=== PATIENT | male | born 1965 | race Caucasian/White ===

== ENCOUNTER 2019-08-23 14:33 | Emergency (ER) | payer BC ==
[2019-08-23] MEDS ORDERED: CLINDAMYCIN 600MG/50ML PREMIX 600 MG/50 ML BAG IVPB ONE (14:51)
--- NOTE | 2019-08-23 14:59 | Emergency Department Record ---
History of Present Illness - General Chief complaint: Abscess Stated complaint: RT GROIN PAIN/LUMP Time Seen by Provider: 08/23/19 14:41 Source: Patient Mode of Arrival: Ambulatory Limitations: No limitations - History of Present Illness Initial comments: The patient is here due to a R groin pain and swelling for 4-5 days. He denies any AP, fever, chills, or dysuria. The patient has no hx of similar issues. MD complaint: Abscess/boil, Lesion, Rash Onset/Timin -: Days(s) Severity: Moderate Severity scale (1-10): 10 Quality: Aching Consistency: Constant - Related Data Home Medications Medication Instructions Recorded Confirmed Last Taken No Home Med [NO HOME MEDS] 08/23/19 08/23/19 Unknown Allergies Allergy/AdvReac Type Severity Reaction Status Date / Time Penicillins Allergy HIVES Verified 08/23/19 14:41 Travel/Exposure Screening - Travel/Exposure Within Last 30 Days Have you traveled within the last 30 days?: No - Travel/Exposure Within Last Year Have you traveled outside the [place] in the last year?: No - Additonal Travel/Exposure Details Have you been exposed to anyone with a communicable illness?: No - Travel Symptoms Symptom Screening: None Review of Systems Constitutional: Denies: Chills, Fever Eyes: Denies: Eye discharge ENT: Denies: Congestion Respiratory: Denies: Cough, Dyspnea Past Medical History - SOCIAL HISTORY Smoking Status: Current every day smoker Alcohol Use: Occasional Drug Use: None - RESPIRATORY Hx Respiratory Disorders: No - CARDIOVASCULAR Hx Cardio Disorders: No - NEURO Hx Neuro Disorders: No - GI Hx GI Disorders: No - Hx Genitourinary Disorders: No - ENDOCRINE Hx Endocrine Disorders: No - MUSCULOSKELETAL Hx Musculoskeletal Disorders: Yes Hx Arthritis: Yes Hx Back Injury: Yes - PSYCH Hx Psych Problems: No - HEMATOLOGY/ONCOLOGY Hx Hematology/Oncology Disorders: No Family Medical History Any Significant Family History?: Yes Physical Exam - General General Appearance: Alert, Oriented x3, Cooperative - Head Head exam: Atraumatic - Eye Eye exam: Normal appearance - ENT Throat exam: Normal inspection. negative: Tonsillar erythema, Tonsillar exudate - Neck Neck exam: Normal inspection, Full ROM. negative: Tenderness - Respiratory Respiratory exam: Normal lung sounds bilaterally. negative: Respiratory distress - Cardiovascular Cardiovascular Exam: Regular rate, Normal rhythm, Normal heart sounds - GI/Abdominal GI/Abdominal exam: Soft, Normal bowel sounds. negative: Distended, Rebound, Rigid, Tenderness - exam: Circumcision. negative: Normal inspection (There is swelling, tenderness and erythema to the R groin/ inguinal area. There is no R scrotal tenderness or testicular tenderness.), Scrotal swelling, Testicular tenderness - Extremities Extremities exam: Normal inspection Image of Full Body: 1 - Area of pain and infection. - Back Back exam: Reports: Normal inspection - Neurological Neurological exam: Alert, Normal gait. negative: Abnormal gait, Motor sensory deficit Course Vital Signs 08/23/19 14:35 Temperature 98.0 F Pulse Rate 93 H Respiratory 20 Rate Blood Pressure 170/98 Pulse Ox 96 - Reevaluation(s) Reevaluation #1: The patient is doing well and walking around with minimal difficulty. Due to the CT report I did discuss the case with Dr. Caldera and he would like to directly admit the patient to [facility] for further IV Abx's and probable surgery. 08/23/19 16:46 Medical Decision Making - Data Complexity MDM Data: Labs Ordered and/or Reviewed, X-Ray Ordered and/or Reviewed - Lab Data Result diagrams: 08/23/19 14:55 08/23/19 14:55 - Radiology Data Radiology results: Report reviewed (CT: abnormal enhancement with 2 separate fluid collections indicating abscesses.) Disposition Disposition: Transfer Clinical Impression: Abscess or cellulitis of groin Disposition: Acute Care Hospital Transfer Transfer To: [facility] Reason For Transfer: Gen Surg. Accepting Physician: Verenice Time Discussed w/Accepting Physician: 16:47 Condition: (2) Stable Forms: Patient Portal Access Time of Disposition: 16:47 Quality - Quality Measures Quality Measures: N/A - Blood Pressure Screening View Details: Yes Does Patient Have Any of the Following: No Blood Pressure Classification: Hypertensive Reading Systolic Measurement: 170 Diastolic Measurement: 98 Screening for High Blood Pressure: < First Hypertensive BP, F/U Documented > [G8950] First Hypertensive Follow-up Interventions: Referral to alternative/primary care provider.
[2019-08-23 15:08] LABS: ABSOLUTE NEUTROPHIL COUNT 6.41; BASO % 0.3 % (0-6); GRAN % 61.6 % (47-80); HEMATOCRIT 47.2 % (42.0-52.0); HEMOGLOBIN 15.6 gm/dl (14.0-18.0); LYMPH % 22.1 % (16-45); MEAN CELL VOLUME 89.1 fl (81-97); MEAN CORPUSCULAR HEMOGLOBIN 29.4 pg (27-33); MEAN CORPUSCULAR HGB CONC 33.1 g/dl (32-36); PLATELET COUNT 431 K/uL (130-400); RED CELL DISTRIBUTION WIDTH 13.3 % (11.5-14.5); WHITE BLOOD COUNT W/O DIFF 10.4 K/uL (4.2-12.2)
[2019-08-23 15:08] LABS: URINE APPEARANCE CLEAR; URINE BILIRUBIN NEGATIVE (NEGATIVE); URINE BLOOD TRACE-L (NEGATIVE); URINE COLOR YELLOW; URINE GLUCOSE (UA) NEGATIVE (NEGATIVE); URINE KETONE NEGATIVE (NEGATIVE); URINE LEUKOCYTE ESTERASE NEGATIVE (NEGATIVE); URINE NITRITE NEGATIVE (NEGATIVE); URINE PROTEIN NEGATIVE (NEGATIVE); URINE UROBILINOGEN 0.2 E.U./dL (0.20 - 1.00)
[2019-08-23 15:16] LABS: URINE EPITHELIAL CELLS NONE SEEN (FEW); URINE RBC RARE (NONE SEEN); URINE WBC NONE SEEN (0-2/hpf)
[2019-08-23 15:21] LABS: BLOOD UREA NITROGEN 7 mg/dL (6-20); CREATININE 0.7 mg/dL (0.7-1.2); EST GLOMERULAR FILTRATION RATE > 60 mL/min
[2019-08-23 15:22] LABS: TOTAL PROTEIN 7.1 g/dL (6.6-8.7)
[2019-08-23 15:24] LABS: GLUCOSE,RANDOM 112 mg/dL (74-109)
[2019-08-23 15:27] LABS: ALBUMIN 4.3 g/dL (4.0-5.0); ALKALINE PHOSPHATASE 59 U/L (40-129); ALT/SGPT 17 U/L (<41); AST/SGOT 14 U/L (10.0-50.0); BILIRUBIN,DIRECT < 0.2 mg/dL (0-0.3)
--- NOTE | 2019-08-23 16:20 | CT SCAN REPORT ---
EXAMINATION: CT of the Pelvis with Intravenous Contrast. EXAM DATE: 08/23/2019 4:00 PM TECHNIQUE: A standard CT pelvis protocol was performed with intravenous contrast. Sagittal and gordon l images were reconstructed. IV Contrast: The type and amount of contrast is recorded within the medical record. INDICATION: R groin pain and swelling COMPARISON: None ENCOUNTER: Not applicable FINDINGS: Ureters & Bladder: Both distal ureters have a normal caliber and the urinary bladder is unremarkable . Gastrointestinal: Visualized bowel is nonobstructed. Diverticular disease of the colon without radiog raphic findings of acute diverticulitis. Lymphatic System: There is no adenopathy within the pelvis. Vasculature: The iliac arteries have a normal caliber. Peritoneum: There is no free fluid within the pelvis. Retroperitoneum: There is no retroperitoneal mass, hemorrhage, or hematoma. Abdominal Wall & Musculoskeletal: Abnormal infiltration of the fat within the right inguinal region a nd groin with a 1.6 x 1.3 cm low-density area with peripheral enhancement suspicious for abscess. Abn ormal infiltration of the fat appears to extend to the level of the right scrotum and additional flui d collection measuring 2.8 x 2.2 cm is seen superior to the right testes. This may represent an addit ional area of abscess. Right fat-containing inguinal hernia. Bilateral pars defects L5 vertebral body with grade 1 anterolis thesis of L5 on S1. Intervertebral disc space narrowing and sclerotic changes noted inferior endplate of L5 and superior endplate S1. 3-D imaging: Not performed. IMPRESSION: Abnormal infiltration of the fat within the right inguinal region and groin with 2 separate fluid col lections measuring 1.6 x 1.3 cm and 2.8 x 2.2 cm. There is some peripheral enhancement to these fluid collections and underlying abscesses should be considered. Additional findings as detailed above Dictated by: Joe Reyes MD on 08/23/2019 4:08 PM. .
== END 2019-08-23 17:09 | disposition short-term general hospital (02) ==
LOC: ER 14:33
DX: L02.214 Cutaneous abscess of groin (principal); F17.210 Nicotine dependence, cigarettes, uncomplicated
CPT/HCPCS: 99285; 96365; 99284; 85025; 80076; 80048; 81001; 72193; Q9967